=== PATIENT | male | born 1975 | race American Indian/Alaskan Native ===

== ENCOUNTER 2020-07-04 15:35 | Outpatient (CLI) | payer OTHER | END 2020-07-04 15:36 | disposition home or self-care (01) | LOC: LAB 15:35 | PROVIDERS: ATTEND Internal Medicine | DX: A64 Unspecified sexually transmitted disease (principal) | CPT/HCPCS: 36415; 86592; 87591 ==

== ENCOUNTER 2021-10-01 14:46 | Emergency (ER) | payer SELFPAY ==
[2021-10-01 15:42] VITALS: BP 161/99
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
== END 2021-10-01 19:03 | disposition left against medical advice (07) ==
LOC: ED 14:46
DX: R07.89 Other chest pain (principal); V89.2XXA Person injured in unspecified motor-vehicle accident, traffic, initial encounter; Y93.89 Activity, other specified; Y92.488 Other paved roadways as the place of occurrence of the external cause; Y99.8 Other external cause status
CPT/HCPCS: 99281

== ENCOUNTER 2022-05-07 19:20 | Emergency (ER) | payer OTHER ==
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
== END 2022-05-07 22:07 | disposition home or self-care (01) ==
LOC: ED 19:20
DX: S53.401A Unspecified sprain of right elbow, initial encounter (principal); V89.2XXA Person injured in unspecified motor-vehicle accident, traffic, initial encounter; Y93.89 Activity, other specified; Y92.89 Other specified places as the place of occurrence of the external cause; Y99.8 Other external cause status
CPT/HCPCS: 99282